=== PATIENT | male | born 1955 | race Caucasian/White ===

== ENCOUNTER 2016-04-10 00:44 | Emergency (ER) | payer OTHER ==
[2016-04-10] MEDS ORDERED: PHENERGAN WITH CODEINE LIQUID PO ONE (01:03)
[2016-04-10] MEDS ORDERED: PREDNISONE PO ONE (01:04)
[2016-04-10] MEDS ORDERED: DUONEB (A & A) INH ONE (01:05)
--- NOTE | 2016-04-10 01:07 | PROVIDER DOCUMENTATION ---
HPI-General Adult - General Chief Complaint: Cold Symptoms Stated Complaint: COLD SYS. Time Seen by Provider: 04/10/16 00:44 Source: patient Allergies/Adverse Reactions: Patient Allergies Allergy/AdvReac Type Severity Reaction Status Date / Time No Known Allergies Allergy Verified 04/10/16 01:22 Home Medications: Aspirin 81 mg PO QAM 08/20/12 Metoprolol [Lopressor] 25 mg PO QAM 08/20/12 Mometasone/Formoterol INH [Dulera 100 Mcg/5 Mcg Inhaler] 2 puff INH RTBID Pantoprazole [Protonix] 40 mg PO QAM 08/20/12 ATORVAstatin [Lipitor] 40 mg PO QHS 04/23/14 CefUROXIME [Ceftin] 500 mg PO BID 04/10/16 Ezetimibe [Zetia] 10 mg PO DAILY 04/10/16 Losartan Potassium 100 mg PO DAILY 04/10/16 Montelukast Sodium [Singulair] 10 mg PO DAILY 04/10/16 - History of Present Illness -Gen Adult Nature of Presenting Problems: 61 year old M presents to the Ed via EMS. Per EMS, Pt called PD just to talk. When EMS got on scene pt began c/o cough and congestion x2 weeks. En-route to the ED pt began c/o chest pain and left arm pain. PT c/o pain all over. Pt states that he has drank 6 beers tonight. Location of Pain/Injury: reports: chest Pain Radiation: reports: no radiation Quality of Pain: reports: aching Severity: reports: mild Onset/Duration: reports: other (2 weeks) Timing: reports: still present Context/Activities at Onset: reports: none Modifying Factors: improves with: nothing Associated Symptoms: reports: chest pain, cough, sinus congestion/drainage Similar Symptoms Previously?: No Recently seen or treated by another doctor?: No Review of Systems - Adult - REVIEW OF SYSTEMS - ADULT Constitutional: denies: chills, fever Eyes: reports: no symptoms reported Ears, Nose, Mouth & Throat: reports: sinus problem. denies: ear pain, throat pain Cardiovascular: reports: chest pain. denies: palpitations Respiratory: reports: cough, shortness of breath Gastrointestinal: denies: nausea, vomiting Genitourinary: reports: no symptoms reported Musculoskeletal: reports: muscle aches. denies: muscle weakness Integumentary: reports: no symptoms reported Neurological: denies: dizziness/vertigo, headache/migraines Psychiatric: reports: no symptoms reported Endocrine: reports: no symptoms reported Hematologic/Lymphatic: reports: no symptoms reported Allergic/Immunologic: reports: no symptoms reported All Other Systems: Reviewed and Negative Past History - Adult - PAST MEDICAL HISTORY-ADULT Review of Records: reports: Nursing Assessment Review, Medications Reviewed Major Childhood Illnesses: reports: denies history Cardiovascular: reports: HTN, hyperlipidemia Respiratory: reports: COPD Gastrointestinal: reports: GERD, other (gastritis) Genitourinary: reports: prostate cancer Musculoskeletal: reports: arthritis, chronic pain - PRIOR SURGERIES/PROCEDURES Surgical/Procedure History: reports: orthopedic (extremity), back/neck, other ( prostate) - IMMUNIZATION STATUS Childhood Immunizations: See Nurse Assessment Flu Vaccine: See Nurse Assessment - FAMILY HISTORY Family History: reviewed, not pertinent - SOCIAL HISTORY Smoking: cigarettes, less than 1 pack/day Provider spent 3-5 mins advising pt. on dangers of tobacco.: Discussed manners to quit use, and f/u contacts for add'l counseling. Substance Use: none/never Alcohol Use Frequency: every day Number of drinks per typical drinking period:: 5-10 drinks Physical Exam-General - PHYSICAL EXAM-ADULT Initial Vital Signs Reviewed: Yes - CONSTITUTIONAL General Appearance: appears well, alert, no apparent distress, other (alcohol smell on breath) - RESPIRATORY Respiratory: normal breath sounds, other (bilateral rib tenderness) - CARDIOVASCULAR Cardiovascular: normal peripheral pulses, regular rate, rhythm, no edema - GASTROINTESTINAL (ABDOMEN) Abdominal Exam: non tender, soft - MUSCULOSKELETAL Extremity: pedal edema (2+ pedal edema bilaterally) - SKIN Integumentary: normal color, normal turgor, warm/dry - PSYCHIATRIC Psych/Mental Status: normal mood/affect, normal thought content, normal thought process, oriented x 3 Progress - PLAN OF CARE/RESULTS Progress/Plan/Lab Results: plan of care: labs, imaging, medications Orders Category Date Time Status Cardiac Monitoring DIRECTED Care 04/10/16 01:01 Active Saline Loc NOW Care 04/10/16 01:01 Active CHEST-PORTABLE [RAD] Stat Exams 04/10/16 01:01 Taken CBC WITH ELECTRONIC DIFF [HEME] Stat Lab 04/10/16 01:20 Completed CK PROFILE [SP CHEM] Stat Lab 04/10/16 01:20 Completed COMPREHENSIVE METABOLIC PANEL [CHEM] Stat Lab 04/10/16 01:20 Completed MAGNESIUM [CHEM] Stat Lab 04/10/16 01:20 Completed PRO B-NATRIURETIC PEPTIDE Stat Lab 04/10/16 01:20 Completed PROTIME WITH INR [COAG] Stat Lab 04/10/16 01:20 Completed PTT [COAG] Stat Lab 04/10/16 01:20 Completed TROPONIN T Stat Lab 04/10/16 01:20 Completed Albuterol 2.5MG/Ipratrop 0.5MG [Duoneb (A & A)] Med 04/10/16 01:05 Discontinued 3 ml INH NOW ONE Codeine/Promethazine [Phenergan with Codeine Liquid] Med 04/10/16 01:03 Discontinued 10 ml PO NOW ONE Prednisone Med 04/10/16 01:04 Discontinued 40 mg PO NOW ONE Aerosol Treatments Routine Oth 04/10/16 01:05 Active Aerosol Treatments Stat Oth 04/10/16 01:05 Active EKG [EKG] Stat Ther 04/10/16 01:01 Ordered Laboratory Tests 04/10/16 04/10/16 04/10/16 01:20 01:20 01:20 WBC 10.38 RBC 4.30 L Hgb 14.1 Hct 41.3 L MCV 96.0 MCH 32.8 H MCHC 34.1 RDW Std Deviation 12.9 Plt Count 381 MPV 9.4 Immature Gran % (Auto) 4.1 H Neut % (Auto) 46.8 Lymph % (Auto) 37.8 Carlton % (Auto) 8.3 Eos % (Auto) 1.6 Baso % (Auto) 1.4 H Immature Gran # (Auto) 0.43 H Neut # (Auto) 4.85 Lymph # (Auto) 3.92 H Carlton # (Auto) 0.86 H Eos # (Auto) 0.17 Baso # (Auto) 0.15 PT INR PTT (Actin FS) Sodium 139 Potassium 4.1 Chloride 102 Carbon Dioxide 19 L Anion Gap 18 BUN 17 Creatinine 1.0 Estimated GFR/1.73 m2 > 60 BUN/Creatinine Ratio 17 Glucose 104 Calculated Osmolality 279 Calcium 9.6 Magnesium 2.6 Total Bilirubin 0.12 L AST 41 H ALT 52 H Alkaline Phosphatase 62 Creatine Kinase 137 Troponin T Wbr-R-Iyogtuqdyde Pept 48 Total Protein 7.0 Albumin 4.1 Globulin 2.9 Albumin/Globulin Ratio 1.4 04/10/16 04/10/16 01:20 01:20 WBC RBC Hgb Hct MCV MCH MCHC RDW Std Deviation Plt Count MPV Immature Gran % (Auto) Neut % (Auto) Lymph % (Auto) Carlton % (Auto) Eos % (Auto) Baso % (Auto) Immature Gran # (Auto) Neut # (Auto) Lymph # (Auto) Carlton # (Auto) Eos # (Auto) Baso # (Auto) PT 9.9 INR 0.93 PTT (Actin FS) 24.5 Sodium Potassium Chloride Carbon Dioxide Anion Gap BUN Creatinine Estimated GFR/1.73 m2 BUN/Creatinine Ratio Glucose Calculated Osmolality Calcium Magnesium Total Bilirubin AST ALT Alkaline Phosphatase Creatine Kinase Troponin T < 0.010 Sfj-Q-Uexafaesunj Pept Total Protein Albumin Globulin Albumin/Globulin Ratio Vital Signs - 24 hr 04/10/16 00:59 Temperature 97.3 F L Pulse Rate 75 Respiratory 20 Rate Blood Pressure 110/63 O2 Sat by Pulse 94 L Oximetry Pt given results and will be d/c home w/ rx to follow up with PCP. Pt verbally understood instructions. PT remained clinically stable throughout the course of the ED stay and will return if symptoms worsen. - EKG 1 Time of EKG reading by physician:: 01:59 EKG Read and Signed by:: Rd Brownlee EKG Interpretation (*Must complete 3 of following elements*): Normal Rate: 80 Rhythm: NSR [place]: normal Departure - Departure Time of Disposition Order: 02:21 DIAGNOSIS: Bronchitis, Chest wall pain Disposition: HOME 01 Certified Medical Emergency: Emergent Condition: Good Additional Instructions: Follow up with primary care doctor. Return to ED for any new or worsening symptoms ED Follow Up Instructions: You have been treated by a care provider in the Emergency Department. These instructions are being provided to you so you can have an understanding of how to care for yourself upon discharge. Upon discharge from the Emergency Department, you are responsible for making arrangements for follow-up care by a physician of your choice. Take all prescribed medications as directed. Return to the Emergency Department immediately for any new or worsening symptoms. You may call the Physician Referral phone number at [phone] to obtain a list of Physicians who are taking new patients. Prescriptions: Albuterol Sulfate [Albuterol Sulfate Hfa] 2 gm IH Q4-6H PRN PRN #1 hfa.aer.ad PRN Reason: Wheezing Codeine/Promethazine [Phenergan with Codeine] 10 ml PO TID PRN PRN #120 ml PRN Reason: Cough Prednisone 20 mg PO BID #10 tablet Referrals: Dustin West MD [Primary Care Provider] - Attestation - Scribe Verification/Attestation Scribe:: Rosy Carlos Acting as Scribe for:: Rd Brownlee Scribe documention review:: This chart was documented by a scribe and accurately reflects the service the provider performed and the decisions made by the provider. Physician Attestation - Physician Attestation I, the provider, attest to the following statement:: Rd Brownlee Physician documentation Attestation:: This documentation recorded by the scribe accurately reflects the service I personally performed and the decisions made by me.
[2016-04-10 01:38] LABS: MANUAL DIFF NEEDED? NO
[2016-04-10 01:49] LABS: BASO% 1.4 % (0.0-0.8); EOS# 0.17 X1000 (0.0-0.7); EOS% 1.6 % (0.0-10.0); HEMATOCRIT 41.3 % (42.0-52.0); HEMOGLOBIN 14.1 g/dL (14.0-18.0); IMM GRAN# 0.43 X1000 (0.0-0.04); IMM GRAN% 4.1 % (0.0-0.5); LYMPH# 3.92 X1000 (1.2-3.4); LYMPH% 37.8 % (20.5-51.1); MCH 32.8 PG (27-31); MCHC 34.1 g/dL (33-37); MONO# 0.86 X1000 (0.11-0.59); MONO% 8.3 % (1.7-9.3); MPV 9.4 FL (7.4-10.4); NEUT% 46.8 % (42.2-75.2); PLT 381 X1000 (130-400)
[2016-04-10 01:56] LABS: INR 0.93; PROTIME 9.9 Seconds (9.2-11.7); PTT 24.5 Seconds (22.0-36.0)
[2016-04-10 02:08] LABS: AGAP 18; ALBUMIN 4.1 g/dL (3.5-5.0); ALKALINE PHOSPHATASE 62 U/L (32-122); BUN 17 mg/dL (8-22); CALCIUM 9.6 mg/dL (8.8-10.2); CHLORIDE 102 mmol/L (98-107); CK PROFILE 137 U/L (24-204); COSMO 279; GOT 41 U/L (10-34); GPT 52 U/L (10-44); MAGNESIUM 2.6 mg/dL (1.5-2.7); POTASSIUM 4.1 mmol/L (3.5-5.1); SODIUM 139 mmol/L (136-145); TCO2 19 mmol/L (25-35); TOTAL BILIRUBIN 0.12 mg/dL (0.20-1.00)
--- NOTE | 2016-04-10 06:25 | EKG Report ---
Test Performed on : 04/10/2016 01:59:56 AM Test Reason : Chest Pain Blood Pressure : / mmHG Vent. Rate : 080 BPM Atrial Rate : 080 BPM P-R Int : 158 ms QRS Dur : 086 ms QT Int : 360 ms P-R-T Axes : 039 005 068 degrees QTc Int : 415 ms Normal sinus rhythm. Normal ECG When compared with ECG of 21-APR-2015 16:28, Vent. rate has increased BY 27 BPM Unconfirmed Result
[2016-04-10 06:47] VITALS: BP 115/85
--- NOTE | 2016-04-10 08:22 | Diag Imaging Result Document ---
PROCEDURE NAME: CHEST-PORTABLE - 04/10/2016 AP PORTABLE CHEST ERECT: TIME: 0125 hours. FINDINGS: There is no evidence of acute cardiac or pulmonary disease and, compared to 04/21/2015, there has been no significant change. IMPRESSION: No acute disease.
== END 2016-04-10 06:47 | disposition home or self-care (01) ==
LOC: EDBD → ED 00:44 → SUPCPDRO 00:44 → ED 06:47
DX: J40 Bronchitis, not specified as acute or chronic (principal); R07.89 Other chest pain; R05 Cough; R09.81 Nasal congestion; M79.602 Pain in left arm; R06.02 Shortness of breath; M79.1 Myalgia; R60.0 Localized edema; Z79.899 Other long term (current) drug therapy; R07.81 Pleurodynia; I10 Essential (primary) hypertension; E78.5 Hyperlipidemia, unspecified; J44.9 Chronic obstructive pulmonary disease, unspecified; K21.9 Gastro-esophageal reflux disease without esophagitis; M19.90 Unspecified osteoarthritis, unspecified site; G89.29 Other chronic pain; F17.210 Nicotine dependence, cigarettes, uncomplicated; Z79.82 Long term (current) use of aspirin; Z71.6 Tobacco abuse counseling; Z85.46 Personal history of malignant neoplasm of prostate
CPT/HCPCS: 36415; 71010; 80053; 82550; 83735; 83880; 84484; 85025; 85610; 85730; 93005; 94640; 99284; J7512

== ENCOUNTER 2016-06-12 19:50 | Emergency (ER) | payer OTHER ==
[2016-06-12 20:14] LABS: URINE MICRO REVIEW NEEDED? NO; URINE SOURCE CLEAN CATCH
[2016-06-12 20:18] LABS: BILIRUBIN URINE NEGATIVE (NEGATIVE); BLOOD URINE NEGATIVE (NEGATIVE); COLOR STRAW; GLUCOSE URINE NEGATIVE (NEGATIVE); LEUKOCYTES URINE NEGATIVE (NEGATIVE); NITRITE URINE NEGATIVE (NEGATIVE); PH URINE 5.5; PROTEIN URINE NEGATIVE (NEGATIVE); TURBIDITY URINE CLEAR (CLEAR); UROBILINOGEN URINE NORMAL (NORMAL)
[2016-06-12 20:44] LABS: SP GRAVITY URINE 1.002
[2016-06-12 20:59] LABS: UR EPITHELIAL CELLS <10 /HPF (<10); URINE BACTERIA NEGATIVE /HPF; URINE RBC <10 /HPF (<10); URINE WBC <10 /HPF (<10)
--- NOTE | 2016-06-12 21:47 | PROVIDER DOCUMENTATION ---
HPI-General Adult - General Chief Complaint: Fall Stated Complaint: FALL Time Seen by Provider: 06/12/16 20:01 Source: patient Allergies/Adverse Reactions: Patient Allergies Allergy/AdvReac Type Severity Reaction Status Date / Time No Known Allergies Allergy Verified 06/12/16 20:13 Home Medications: Home Medication List Medication Instructions Recorded Confirmed Last Taken Type Aspirin 81 mg PO QAM 08/20/12 06/12/16 06/12/16 History Metoprolol [Lopressor] 25 mg PO QAM 08/20/12 06/12/16 06/12/16 History Mometasone/Formoterol INH [Dulera 2 puff INH RTBID 08/20/12 06/12/16 06/12/16 History 100 Mcg/5 Mcg Inhaler] Pantoprazole [Protonix] 40 mg PO QAM 08/20/12 06/12/16 06/12/16 History ATORVAstatin [Lipitor] 40 mg PO QHS 04/23/14 06/12/16 06/11/16 20:00 History Cyclobenzaprine [Flexeril] 10 mg PO TID #20 tablet 08/18/15 06/12/16 06/12/16 Rx Meloxicam [Mobic] 7.5 mg PO DAILY PRN PRN #15 tablet 08/18/15 06/12/16 06/12/16 Rx Albuterol Sulfate [Albuterol 2 gm IH Q4-6H PRN PRN #1 hfa.aer.ad 04/10/1606/12/16 Rx Sulfate Hfa] CefUROXIME [Ceftin] 500 mg PO BID 04/10/16 06/12/16 06/12/16 History Codeine/Promethazine [Phenergan 10 ml PO TID PRN PRN #120 ml 04/10/16 06/12/16 06/12/16 Rx with Codeine] Ezetimibe [Zetia] 10 mg PO DAILY 04/10/16 06/12/16 06/12/16 History Losartan Potassium 100 mg PO DAILY 04/10/16 06/12/16 06/12/16 History Montelukast Sodium [Singulair] 10 mg PO DAILY 04/10/16 06/12/16 06/12/16 History Prednisone 20 mg PO BID #10 tablet 01/02/1406/12/16 06/12/16 Rx - History of Present Illness -Gen Adult Nature of Presenting Problems: Pt. is 61 yom that presents by EMS after he allegedly drank to much ETOH and fell down. Pt. reports his stomach hurt a little bit and that he was fine. Pt. denies any other injury at time of exam. Location of Pain/Injury: reports: abdomen. denies: head, face, mouth, neck, chest, upper extremity, hand(s), back, pelvis, genitalia, lower extremity, feet , upper body, lower body, generalized Pain Radiation: reports: no radiation Quality of Pain: reports: aching. denies: burning, cramping, dull, fullness, indigestion, pressure, sharp, stabbing, tearing, throbbing, tightness Severity: reports: mild. denies: moderate, severe Onset/Duration: reports: abrupt, just prior to arrival Timing: reports: still present. denies: improving, gone now, resolved prior to arrival, intermittent, constant, changing over time, getting worse Context/Activities at Onset: reports: none. denies: recent emotional stress, recent physical stress, recent trauma history, possible bad food, cold exposure , out of country travel Modifying Factors: improves with: nothing Associated Symptoms: denies: anxiety, arm pain, back/neck pain, chest pain, constipation, cough, diaphoresis, diarrhea, dizziness, EENT symptoms, fatigue, fever/chills, genitourinary problems, headaches, heartburn, joint pain, loss of appetite, malaise, muscle aches, sinus congestion/drainage, nausea, rash, seizure, shortness of breath, sensory/motor loss, pain with inspiration, swelling/mass in abdomen, syncope, vomiting, weakness, trouble walking Similar Symptoms Previously?: No Recently seen or treated by another doctor?: No Review of Systems - Adult - REVIEW OF SYSTEMS - ADULT Constitutional: reports: see HPI. denies: chills, fever, fatique Eyes: reports: see HPI. denies: discharge, blurred vision, double vision Ears, Nose, Mouth & Throat: reports: see HPI. denies: ear discharge, ear pain, hearing loss, sinus problem, nose pain, loose teeth, mouth/dental pain, throat pain, throat swelling Cardiovascular: reports: see HPI. denies: chest pain, irregular heart rate, orthopnea, syncope Respiratory: reports: see HPI. denies: chronic cough, cough, dyspnea on exertion, pleurisy, shortness of breath, wheezing Gastrointestinal: reports: see HPI, abdominal pain. denies: hematemesis, constipation, diarrhea, difficulty swallowing, frequent heartburn, nausea, vomiting Genitourinary: reports: see HPI. denies: dysuria, discharge, hematuria, hesitency, urgency Musculoskeletal: reports: see HPI. denies: bone pain, back pain, joint pain, joint swelling, neck pain Integumentary: reports: see HPI. denies: hives, itching, rash, skin thickening Neurological: reports: see HPI. denies: ataxia, headache/migraines, numbness, seizure, tremors Psychiatric: reports: see HPI. denies: anxiety, depression, emotional problems , insomnia, panic attacks, suicidal thoughts Past History - Adult - PAST MEDICAL HISTORY-ADULT Review of Records: reports: Old Records Reviewed, Nursing Assessment Review, Medications Reviewed, Social history reviewed & non-contributory. Major Childhood Illnesses: reports: denies history Cardiovascular: reports: HTN, hyperlipidemia Respiratory: reports: COPD Gastrointestinal: reports: GERD, other (gastritis) Obstetrical/Gynecological: reports: denies history Genitourinary: reports: prostate cancer Musculoskeletal: reports: arthritis, chronic pain Neurological: reports: denies history Endocrine/Immune: reports: denies history Other Conditions: reports: denies history - PRIOR SURGERIES/PROCEDURES Surgical/Procedure History: reports: orthopedic (extremity), back/neck, other ( prostate) - IMMUNIZATION STATUS Flu Vaccine: See Nurse Assessment - FAMILY HISTORY Family History: reviewed, not pertinent - SOCIAL HISTORY Smoking: cigarettes, greater than 1 pack/day Provider spent 3-5 mins advising pt. on dangers of tobacco.: Discussed the need to stop smoking. Physical Exam-General - PHYSICAL EXAM-ADULT Initial Vital Signs Reviewed: Yes - CONSTITUTIONAL General Appearance: alert, no apparent distress, thin. negative: obese, anxious , lethargic, slow to respond, obtunded, combative - EYES Eyes: PERRL/EOMI, pink conjunctivae. negative: conjuctival exudate, scleral icterus, subconjunctival hemorrhage - HEAD, EARS, NOSE, MOUTH & THROAT HENMT: normocephalic/atraumatic, moist mucous membranes. negative: angioedema, frontal tenderness, maxillary tenderness - NECK Neck: non-tender, full range of motion, supple, normal inspection. negative: lymphadenopathy, trachial deviation, thyromegaly - RESPIRATORY Respiratory: lungs clear, normal breath sounds. negative: crackles, rales, rhonchi, stridor, wheezing - CARDIOVASCULAR Cardiovascular: normal peripheral pulses, regular rate, rhythm, no JVD, no murmur. negative: extra beats, friction rub, irregularly irregular - CHEST (BREASTS) Chest/Breast: deferred - GASTROINTESTINAL (ABDOMEN) Abdominal Exam: normal bowel sounds, non tender, soft. negative: distended, guarding, rigid, rebound, tenderness, hernia, mass - GENITOURINARY Male Genitalia: deferred Rectal Exam: deferred Hemoccult Exam: deferred - LYMPHATIC Lymphatic: no adenopathy. negative: axilla node tender, cervical node tenderness - MUSCULOSKELETAL Back Exam: normal inspection, no CVA tenderness, no vertebral tenderness. negative: ecchymosis, swelling, vertebral tenderness Extremity: normal range of motion, non-tender, normal gait, normal inspection. negative: deformity, erythema, inflammation, swelling, tenderness Peripheral Pulses: radial (R): 2+, radial (L): 2+ - SKIN Integumentary: normal color, normal turgor, warm/dry. negative: cyanosis, diaphoresis, ecchymosis, erythema, jaundice, mottled, pallor, petechiae, purpura , rash, swelling, tenderness - NEUROLOGIC Neurologic: grossly normal, no motor/sensory deficits. negative: aphasia, facial droop, focal weakness, motor weakness, sensory deficit - PSYCHIATRIC Psych/Mental Status: oriented x 3. negative: anxious, paranoid, tearful Progress - PLAN OF CARE/RESULTS Progress/Plan/Lab Results: The nurse documented the patient fell an hit his head prior to arrival and after speaking to the patient he confirmed he did fall but states he didn't mention it because he said he was fine. There is a bruise noted to the back of his neck after secondary assessment however the patient states there is no pain. Discussed results and plan of care with patient. Patient agrees with plan and verbalizes understanding. Vital Signs Temp Pulse Resp BP Pulse Ox 06/12/16 19:58 98.6 F 73 18 113/76 98 No Known Allergies Allergy (Verified 06/12/16 20:13) Aspirin 81 mg PO QAM 08/20/12 Metoprolol [Lopressor] 25 mg PO QAM 08/20/12 Mometasone/Formoterol INH [Dulera 100 Mcg/5 Mcg Inhaler] 2 puff INH RTBID Pantoprazole [Protonix] 40 mg PO QAM 08/20/12 ATORVAstatin [Lipitor] 40 mg PO QHS 04/23/14 Cyclobenzaprine [Flexeril] 10 mg PO TID #20 tablet 08/18/15 Meloxicam [Mobic] 7.5 mg PO DAILY PRN PRN #15 tablet 08/18/15 Albuterol Sulfate [Albuterol Sulfate Hfa] 2 gm IH Q4-6H PRN PRN #1 hfa.aer.ad CefUROXIME [Ceftin] 500 mg PO BID 04/10/16 Codeine/Promethazine [Phenergan with Codeine] 10 ml PO TID PRN PRN #120 ml 04/10 Ezetimibe [Zetia] 10 mg PO DAILY 04/10/16 Losartan Potassium 100 mg PO DAILY 04/10/16 Montelukast Sodium [Singulair] 10 mg PO DAILY 04/10/16 Prednisone 20 mg PO BID #10 tablet 04/10/16 I&O 06/11/16 06/12/16 06/13/16 06:59 06:59 06:59 Output Total 110 Balance -110 Laboratory 06/12/16 20:03 Urine Source CLEAN CATCH Urine Color STRAW Urine Turbidity CLEAR Urine pH 5.5 Ur Specific [place] 1.002 Urine Protein NEGATIVE Ur Glucose (Stick) NEGATIVE Ur Ketones (Stick) NEGATIVE Urine Blood NEGATIVE Urine Nitrite NEGATIVE Urine Bilirubin NEGATIVE Urobilinogen Dipstick NORMAL Urine Leukocytes NEGATIVE Urine WBC (Auto) <10 Urine RBC (Auto) <10 U Epithel Cells (Auto) <10 Urine Bacteria (Auto) NEGATIVE Orders Category Date Time Status Finger Stick Blood Sugar (ED) DIRECTED Care 06/12/16 22:23 Active Orthostatic Vital Signs NOW Care 06/12/16 22:23 Active FLAT/UPRIGHT ABD/1 VIEW CHEST [RAD] Stat Exams 06/12/16 20:02 Taken HEAD/C-SPINE W/O CONTRAST [CT] Stat Exams 06/12/16 22:15 Taken URINALYSIS [URINALYSIS] Stat Lab 06/12/16 20:03 Completed EKG [EKG] Stat Ther 06/12/16 22:23 Ordered Laboratory Tests 06/12/16 20:03 Urine Source CLEAN CATCH Urine Color STRAW Urine Turbidity CLEAR Urine pH 5.5 Ur Specific [place] 1.002 Urine Protein NEGATIVE Ur Glucose (Stick) NEGATIVE Ur Ketones (Stick) NEGATIVE Urine Blood NEGATIVE Urine Nitrite NEGATIVE Urine Bilirubin NEGATIVE Urobilinogen Dipstick NORMAL Urine Leukocytes NEGATIVE Urine WBC (Auto) <10 Urine RBC (Auto) <10 U Epithel Cells (Auto) <10 Urine Bacteria (Auto) NEGATIVE - XRAY 1 XRAY Study: Chest, Abdomen XRAY Interpretation: ANTHONY (Mickey) - CT/MRI 1 CT Study: Cervical Spine, Head CT Results: No injury head or c-spine (Lizzie) Departure - Departure Time of Disposition Order: 23:22 DIAGNOSIS: Fall Qualifiers: Encounter type: initial encounter Qualified Code(s): W19.XXXA - Unspecified fall, initial encounter Disposition: HOME 01 Certified Medical Emergency: Emergent Condition: Stable Additional Instructions: Follow up with primary care physician Return to ED for any concerns or worsening of symptoms ED Follow Up Instructions: You have been treated by a care provider in the Emergency Department. These instructions are being provided to you so you can have an understanding of how to care for yourself upon discharge. Upon discharge from the Emergency Department, you are responsible for making arrangements for follow-up care by a physician of your choice. Take all prescribed medications as directed. Return to the Emergency Department immediately for any new or worsening symptoms. You may call the Physician Referral phone number at [phone] to obtain a list of Physicians who are taking new patients. Attestation - Physician/ DOUGLAS Attestation Patient care was provided by Advanced Practice Provider:: Yes Advanced Practice Provider:: Jagdeep Arevalo Advanced Practice Provider documentation review:: The Mid-level provider documentation, treatment plan and medical decision making was reviewed by the physician who agrees with all treatment and medical decision making by the MLP.
--- NOTE | 2016-06-12 23:16 | ED EKG INTERP ---
EKG Interpretation - EKG Time of EKG reading by physician:: 23:15 EKG Read and Signed by:: Simba Cantrell EKG Interpretation (*Must complete 3 of following elements*): Abnormal Rate: 61 Rhythm: NSR ST Wave: non-specific ST changes Attestation - Scribe Verification/Attestation Scribe:: Rd Hussein Acting as Scribe for:: Simba Cantrell Scribe documention review:: This chart was documented by a scribe and accurately reflects the service the provider performed and the decisions made by the provider.
[2016-06-12 23:26] VITALS: BP 129/76
--- NOTE | 2016-06-13 07:54 | Diag Imaging Result Document ---
PROCEDURE NAME: HEAD/C-SPINE W/O CONTRAST - 06/12/[address]: A CT dose reduction protocol was used. COMPARISON: None. FINDINGS: The ventricles and sulci are normal in size and contour. There is no mass, hemorrhage, or evidence of acute ischemia. The bony calvaria is intact. The visualized paranasal sinuses and mastoid air cells are clear. IMPRESSION: Negative head CT. FINDINGS: Alignment is anatomic. Vertebral body heights and intervertebral disc spaces are preserved. Neural foramina are patent. Soft tissues are clear. IMPRESSION: Negative Exam. CT CERVICAL SPINE: A CT dose reduction protocol was used. COMPARISON: None. FINDINGS: Alignment is slightly reversed at the lower cervical spine. Vertebral body heights are preserved. There is multilevel very severe facet degeneration most notably at C2-3, C3-4 and C4- 5. On the left side, the C3-4 facet is fused. There is also some disk degeneration at C3-4 and C4-5. No significant central canal stenosis. No evidence of fracture or subluxation. There is severe left-sided neural foraminal stenosis at C3-4 and C4-5. IMPRESSION: Cervical spondylosis. No acute injury. [facility]
--- NOTE | 2016-06-13 08:26 | Diag Imaging Result Document ---
PROCEDURE NAME: FLAT/UPRIGHT ABD/1 VIEW CHEST - 06/12/2016 PLAIN RADIOGRAPHS OF THE CHEST AND ABDOMEN, 3 VIEWS: COMPARISON: Chest radiograph dated 04/10/2016. FINDINGS: There are unremarkable bowel gas and stool patterns. There is patchy small bowel gas but there is nothing to indicate obstruction. There is no evidence of large-volume free abdominal gas. There is no discrete organomegaly. The lungs are grossly clear. Cardiac silhouette is unremarkable. IMPRESSION: Nonspecific abdomen.
--- NOTE | 2016-06-13 09:56 | EKG Report ---
Test Performed on : 06/12/2016 11:02:40 PM Test Reason : CP Blood Pressure : / mmHG Vent. Rate : 061 BPM Atrial Rate : 061 BPM P-R Int : 168 ms QRS Dur : 090 ms QT Int : 432 ms P-R-T Axes : 060 001 040 degrees QTc Int : 434 ms Normal sinus rhythm. Normal ECG When compared with ECG of 10-APR-2016 01:59, No significant change was found Unconfirmed Result
== END 2016-06-12 23:33 | disposition home or self-care (01) ==
LOC: ED 19:50
DX: R10.9 Unspecified abdominal pain (principal); R94.31 Abnormal electrocardiogram [ECG] [EKG]; I10 Essential (primary) hypertension; E78.5 Hyperlipidemia, unspecified; J44.9 Chronic obstructive pulmonary disease, unspecified; K21.9 Gastro-esophageal reflux disease without esophagitis; M19.90 Unspecified osteoarthritis, unspecified site; G89.29 Other chronic pain; Z79.899 Other long term (current) drug therapy; F17.210 Nicotine dependence, cigarettes, uncomplicated; Z79.82 Long term (current) use of aspirin; Z71.6 Tobacco abuse counseling; Z85.46 Personal history of malignant neoplasm of prostate; W19.XXXA Unspecified fall, initial encounter
CPT/HCPCS: 70450; 72125; 74022; 81001; 82948; 93005